=== PATIENT | female | born 1945 | race Caucasian/White ===

== ENCOUNTER 2016-06-09 18:22 | Inpatient (IN) | payer OTHER, MEDICAID, MEDICARE ==
[2016-06-09 18:37] VITALS: BP 94/58
[2016-06-09 19:02] LABS: HEMATOCRIT 29.4 % (35.0-45.0); MEAN CELL VOLUME 104.8 fl (81-100); MEAN CORPUSCULAR HEMOGLOBIN 35.4 pg (27.0-31.0); MEAN CORPUSCULAR HGB CONC 33.8 pg (28.0-36.0); MEAN PLATELET VOLUME 8.2 fl; RED BLOOD COUNT 2.81 Mil/cmm (3.80-5.20)
[2016-06-09 19:21] LABS: INR 1.14 (0.5-1.4)
[2016-06-09 19:22] LABS: PLATELET COUNT 393 Th/cmm (150-400); WHITE BLOOD COUNT 18.8 Th/cmm (4.8-10.8)
[2016-06-09] MEDS ORDERED: Sodium Chloride 0.9% 1,000 ML IV ONE (19:23)
[2016-06-09 19:27] LABS: ALB/GLOB RATIO 0.9 (1.0-1.8); ALKALINE PHOSPHATASE 101 U/L (34-104); ANION GAP 13.5 (7.0-16.0); BUN - UREA NITROGEN 11 mg/dL (7-25); CALCIUM SERUM 7.8 mg/dL (8.6-10.3); CHLORIDE 104 mEq/L (98-107); CHOLESTEROL 68 mg/dL (<200); GLUCOSE 165 mg/dL (70-105); POTASSIUM SERUM 3.5 mEq/L (3.5-5.1); SGOT 36 U/L (13-39); SGPT/ALT 29 U/L (7-52); SODIUM SERUM 136 mEq/L (136-145); TRIGLYCERIDES 103 mg/dL (<150)
--- NOTE | 2016-06-09 19:30 | ED Physician Chart ---
Chief Complaint/HPI - Patient Information Date Seen:: 06/09/16 Time Seen:: 18:43 Chief Complaint:: ALOC History of Present Illness:: THIS IS A 70 YO FEMALE BIB EMS FROM HOME FOUND DOWN AND ALTERED. SHE RESPONSE TO VERBAL STIMULUS AND TACTILE STIMULUS. SHE HAS A HISTORY OF ANEMIA. 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 SHE IS ALSO UNABLE TO GIVE A HISTORY OR REVIEW OF SYSTEMS. Allergies:: Allergies Allergy/AdvReac Type Severity Reaction Status Date / Time No Known Allergies Allergy Verified 10/20/15 21:42 Vitals:: Vital Signs - 8 hr 06/09/16 06/09/16 18:37 18:38 Temp 98.3 F HR 140 RR 10 BP 94/58 94/58 O2 Sat % 100 Historian:: EMS, Medical Records Review:: Nurse's Note Reviewed Review of Systems - Review of Systems Skin: Other (CANNOT GIVE A REVIEW OF SYSTEMS.) Past Medical History - Past Medical History Obtainable: No Family History: Other (UNKNOWN) Social History: Other (UNKNOWN) Surgical History: other (UNKNOWN) Family Medical History - Family Member Mother History Unknown: Yes Physical Exam - Physical Examination General/Constitutional: Well-developed, well-nourished, Alert, No distress, GCS 15, Non-toxic appearing, Ambulatory Other Gen/Cons comments:: ALTERED Head: Atraumatic Eyes: Lids, conjuctiva normal, PERRL, EOMI Skin: Nl inspection, No rash, No skin lesions, No ecchymosis, Well hydrated, No lymphadenopathy Other Skin comments:: PALE DEHYDRATION ENMT: External ears, nose nl, Nasal exam nl, Lips, teeth, gums nl Neck: Nontender, Full ROM w/o pain, No JVD, No nuchal rigidity, No bruit, No mass, No stridor Respiratory: Nl effort/Exclusion, Clear to Auscultation Other Respiratory comments:: DECREASE EXCURSION OF THE DIAPHRAMS Cardio Vascular: RRR (TACHYCARDIC 140), No murmur, gallop, rubs, NL S1 S2 GI: No tenderness/rebounding/guarding, No organomegaly, No hernia, Normal BS's, Nondistended, No mass/bruits, No McBurney tenderness : No CVA tenderness Extremities: No tenderness or effusion, Full ROM, normal strength in all extremities, No edema, Normal digits & nails Neuro/Psych: Alert/oriented, DTR's symmetric, Normal sensory exam, Normal motor strength, Judgement/insight normal, Mood normal, Normal gait, No focal deficits Misc: normal gait, Normal back, No paraspinal tenderness Labs/Radiology/EKG Results - Lab Results Results: Laboratory Tests 06/09/16 18:49 WBC 18.8 H D RBC 2.81 L Hgb 10.0 L Hct 29.4 L MCV 104.8 H MCH 35.4 H MCHC Differential 33.8 RDW 17.0 Plt Count 393 D MPV 8.2 - Radiology Results Results: CHEST X-RAY = COPD LUNGS - EKG Interpretations EKG Time:: 19:36 Rate & Rhythm: 113, SINUS TACH [place]: RIGHT ED Septic Shock - . Is Septic Shock (SBP<90, OR Lactate>4 mmol\L) present?: No - <6hrs of presentation: Vital Signs: Vital Signs - 8 hr 06/09/16 06/09/16 18:37 18:38 Temp 98.3 F HR 140 RR 10 BP 94/58 94/58 O2 Sat % 100 Reassessment (Disposition) - Reassessment Reassessment Condition:: Improved - Diagnosis Diagnosis:: SEPSIS ALTERED LEVEL CONSCIOUSNESS - Patient Disposition Discharge/Transfer:: Acute Care w/in this hosp Admitting Medical Physician:: Kamran Pickard Condition at Disposition:: Improved ED Discharge Plan - Patient Disposition Admit/Discharge/Transfer: Acute Care w/in this hosp Condition at Disposition: Improved
[2016-06-09 19:51] LABS: BAND NEUTROPHILE 10 % (0-10); BASOPHIL 0 % (0-3); EOSINOPHIL 0 % (0-5); NEUTROPHILS 82 % (40-80); PLATELET ESTIMATE ADEQUATE (NORMAL); PLATELET MORPHOLOGY NORMAL (NORMAL); TOTAL CELLS COUNTED 100
[2016-06-09] MEDS ORDERED: Diphenoxylate/Atropine 2.5mg Tab PO PRN (20:40)
--- NOTE | 2016-06-09 21:36 | Admit Criteria Form ---
Admit Criteria Forms - Admit Criteria Diagnosis: SEVERE SEPSIS Clinical Indications for Admission to Inpatient Care (Place 'X' for any and all applicable criteria): Hospital admission is needed for appropriate care of the patient because of ANY ONE of the following: [X]I. Hemodynamic instability indicated by ANY ONE of the following(1)(2)(3)( 4)(5): []a. Vital sign abnormality not readily corrected by appropriate treatment within 12 to 24 hours indicated by ANY ONE of the following: []i) Tachycardia that persists despite appropriate treatment []ii) Hypotension that persists despite appropriate treatment []iii)Orthostatic vital sign changes that persist despite appropriate treatment [X]b. Vital sign abnormality that is severe indicated by ANY ONE of the following: [X]i.Inadequate perfusion indicated by ANY ONE of the following : [X]1) Lactic acidosis (greater than 2 mmol/L) []2) New abnormal capillary refill (greater than 3 seconds) []3) Reduced urine output []4) New altered mental status []5) Myocardial Ischemia []ii. Mean arterial pressure [A] less than 60 mm Hg []iii. Mean arterial pressure[A] less than 70 mm Hg after 30 minutes of appropriate treatment (eg, fluid resuscitation) []iv. Sustained heart rate greater than 120 beats per minute in adult []v. IV inotropic or vasopressor medication required to maintain adequate blood pressure or perfusion []II. Systemic or infectious condition causing severe symptoms or findings not responsive to emergency or observation care treatment (as appropriate) indicated by ANY ONE of the following: []a. Cardiac arrhythmias of immediate concern(1)(2)(3) []b. Severe endocrine disorder (eg, thyrotoxicosis, adrenal insufficiency)(4)(5) []c. Seizures (eg, new or recurrent)(6) []d. New-onset end organ failure or dysfunction as indicated by ANY ONE of the following: []i. Acute unexplained hypoxemia (eg, not from lung infection or chronic disease)(7)(8)(9) []ii. Acute renal failure as indicated by new onset of ANY ONE of the following(10)(11)(12)(13)(14): []1) 3-fold rise in serum creatinine from baseline []2) Serum creatinine greater than 4 mg/dL (354 micromoles/L) with acute rise greater than 0.5 mg/dL (44.2 micromoles/L) []3) Reduction of more than 75% in estimated glomerular filtration rate from baseline. []4) Estimated glomerular filtration rate less than 35 mL/min/1.73m2 ( 0.59 mL/sec/1.73m2) in child younger than 18 years. []5) Cessation of urine output indicated by ALL of the following: []A. Adequate volume status []B. Inadequate urine output as indicated by ANY ONE of the following: []a. Urine output less than 0.3 mL/kg/hr for 24 hours []b. Anuria (urine output less than 0.1 mL/kg/hr) for 12 hours []iii. Acute mental status changes(15) []iv.Acute hepatic failure (eg, plasma bilirubin greater than 4 mg/dL ( 68 micromoles/L), new INR greater than 2.0)(16)(17) []e. Unmanageable nausea and vomiting(18) []f. New-onset or uncontrolled central diabetes insipidus(19)(20) []g. Clinically significant dehydration(18)(21) []h. Hypoglycemia(22) []i. Acidosis (pH less than 7.35) or alkalosis (pH greater than 7.45)( 22)(23) []j. Toxic drug level that indicates need for specific monitoring or treatment(24)(25) []k. Severe electrolyte abnormalities indicated by ALL of the following( 1)(2)(3): []i. Electrolytes and associated findings are not as expected for patient baseline or acceptable treatment effects. []ii. Severe abnormalities indicated by ANY ONE of the following: []1) Sodium less than 130 mEq/L (mmol/L) (new) []2) Sodium less than 135 mEq/L (mmol/L) with ANY ONE of the following: []A. Uncorrectable (to near normal or chronic baseline) after trial of outpatient and emergency treatment []B. Altered mental status []C. Seizures []D. Severe medical etiology requiring inpatient management (eg , heart failure, hypovolemia) []3) Sodium greater than 155 mEq/L (mmol/L) []4) Sodium greater than 150 mEq/L (mmol/L) with ANY ONE of the following: []A. Uncorrectable (to near normal or chronic baseline) with outpatient and emergency treatment []B. Altered mental status []C. Seizures []D. Severe medical etiology (eg, hypovolemia, diabetes insipidus) []5) Potassium less than 2.5 mEq/L (mmol/L) despite outpatient and emergency treatment []6) Potassium less than 3 mEq/L (mmol/L) with ANY ONE of the following : []A. Weakness []B. Cardiac abnormality (eg, arrhythmia, conduction disturbance ) []C. Cardiac ischemia []D. Ileus []E. Ongoing medical cause requiring inpatient management (eg, acute renal wasting or SIADH) []F. Other severe symptoms []7) Potassium greater than 6.5 mEq/L (mmol/L) []8) Potassium greater than 5 mEq/L (mmol/L) with ANY ONE of the following: []A. Uncorrectable (to near normal or chronic baseline) with outpatient and emergency treatment []B. Severe ECG findings[A] []C. Acute worsening of renal failure (creatinine greater than 2.5 mg/dL (221 micromoles/L) or significant elevation for age and size) []D. Severe weakness []E. Severe medical etiology (eg, hemolysis, infection, drug overdose) []9) Calcium less than 7 mg/dL (1.75 mmol/L) despite outpatient and emergency treatment(5) []10) Calcium less than 8 mg/dL (2 mmol/L) with significant symptoms or findings (eg, altered mental status, muscle spasms, seizures , breathing difficulty, cardiac abnormality (eg, arrhythmia or conduction disturbance))(5) []11) Calcium greater than 14 mg/dL (3.5 mmol/L)(5) []12) Calcium greater than 12 mg/dL (3 mmol/L) with ANY ONE of the following(5): []A. Uncorrectable (to near normal or chronic baseline) with outpatient and emergency treatment []B. Significant dehydration or hypovolemia as indicated by ALL of the following(3)(6)(7): []a. Not resolved with initial treatments []b. Clinically significant dehydration as indicated by ANY ONE of the following: [](1) Vomiting refractory to outpatient treatment (ie, precluding oral rehydration) [](2) Inability to drink [](3) Hypernatremia or other electrolyte abnormality unable to be corrected with outpatient and emergency treatment [](4) Failure to remain hydrated with outpatient therapy [](5) Reduced urine output [](6) Hypotension [](7) Serious cause for dehydration requiring acute hospitalization ( eg, bowel obstruction, increased intracranial pressure, infectious cause) [](8) Child with ANY ONE of the following(8): [](i) Severe abdominal tenderness [](ii) Adequate care not available at home [](iii) Severe dehydration (greater than 9% loss of body weight) []C. Significant symptoms or findings (eg, altered mental status , cardiac abnormality (eg, arrhythmia, conduction disturbance), malignant etiology requiring inpatient treatment) []13) Phosphorus less than 1 mg/dL (0.32 mmol/L) []14) Phosphorus less than 1.5 mg/dL (0.48 mmol/L) with ANY ONE of the following: []A. Patient unresponsive to outpatient and emergency treatment []B. Significant symptoms or findings (eg, weakness, altered mental status, breathing difficulty, seizures, rhabdomyolysis) []15) Phosphorus greater than 10 mg/dL (3.2 mmol/L) []16) Phosphorus greater than 4.5 mg/dL (1.45 mmol/L) (new) with ANY ONE of the following: []A. Severe medical etiology (eg, crush injury, acute renal failure) []B. Associated hypocalcemia with significant findings (eg, neurologic symptoms, altered mental status, muscle spasms, seizures, breathing difficulty, cardiac abnormality (eg, arrhythmia, conduction disturbance)) []16) Magnesium less than 1 mg/dL (0.41 mmol/L) []17) Magnesium less than 1.5 mg/dL (0.62 mmol/L) with ANY ONE of the following: []A. Patient unresponsive to outpatient and emergency treatment []B. Associated hypocalcemia with significant findings (eg, altered mental status, muscle spasms, seizures, breathing difficulty, cardiac abnormality (eg, arrhythmia, conduction disturbance)) []C. Associated hypokalemia (potassium less than 3 mEq/L (mmol/L )) with risk of arrhythmia []18) Magnesium greater than 4 mEq/L (2 mmol/L) []19) Magnesium greater than 2.5 mEq/L (1.25 mmol/L) with significant symptoms or findings (eg, weakness, altered mental status, cardiac abnormality (eg, arrhythmia, conduction disturbance), breathing difficulty, severe medical etiology (eg, renal failure, hypovolemia)) []20) Uric acid greater than 20 mg/dL (1190 micromoles/L)(9) []21) Uric acid greater than 8 mg/dL (476 micromoles/L) with significant symptoms or findings of tumor lysis syndrome (eg, creatinine greater than 1.5 times upper limit of normal, cardiac abnormality (eg, arrhythmia, conduction disturbance), seizure)(9) []III. High fever or other high-risk infection situation as indicated by ANY ONE of the following(26)(27)(28): []a. Outpatient and observation care antimicrobial treatment unavailable, not effective, or not appropriate []b. Documented bacteremia []c. Temperature greater than 104.9 degrees F (40.5 degrees C) (oral) []d. Temperature greater than 103.1 degrees F (39.5 degrees C) (oral) or less than 96.8 degrees F (36 degrees C) (rectal) that does not respond to emergency treatment and observation care []IV. High-risk febrile neutropenia[A] as indicated by ANY ONE of the following(29)(30)(31)(32): []a. Profound neutropenia[B] anticipated to extend for more than 7 days []b. Hemodynamic instability []c. Hypoxemia []d. Tachypnea []e. Altered mental status []f. New-onset abdominal pain []g. New-onset vomiting or diarrhea []h. Oral or gastrointestinal mucositis that interferes with swallowing or causes severe diarrhea []i. Focal infection (eg, cellulitis, pneumonia, central line or catheter infection, perirectal abscess) []j. Renal insufficiency (eg, GFR of less than 30 mL/min/1.73m2 (0.5 mL/sec /1.73m2)). []k. Severe liver dysfunction (transaminase levels greater than 5 times normal) []l. Platelet count less than 50,000/mm3 (50 x109/L)(33) []m. Leukemia or lymphoma induction therapy []n. Leukemia not in complete remission or with evidence of disease progression []o. Bone marrow transplant patient []p. Alemtuzumab being used for therapy []q. [employer] Association for Supportive Care in Cancer (MASCC) Risk Index score of less than 21[C](33)(35). []V. Isolation required (eg, tuberculosis that requires isolation, Ebola infection)[D](36)(37)(38)(39)(40) []. Gangrene that requires treatment beyond emergency or observation level care(41)(42) []VII. Antitoxin administration and ongoing observation required (eg, tetanus, botulism)(43)(44) []. Suspected infection with rapid progression or severe symptoms as indicated by ANY ONE of the following(45): []a. Streptococcal or staphylococcal toxic shock(46) []b. Diphtheria(47) []c. Hantavirus(48) []d. Severe acute respiratory syndrome(8)(49) []e. Anthrax(50) []f. Ebola[D](36)(37)(38) []g. Necrotizing soft tissue infection(41)(42) []h. Plague(50) []i. Other suspected infection that requires care beyond emergency or observation level care []VII. Severe adverse drug or systemic toxin reaction as indicated by ANY ONE of the following(24): []a. Serotonin syndrome(51)(52) []b. Neuroleptic malignant syndrome(51)(52) []c. Cholinergic syndrome with severe symptoms (eg, bronchorrhea, weakness , mental status changes, seizures)(53) []d. Anticholinergic syndrome []e. Sympathetic syndrome with severe symptoms (eg, seizures, mental status changes, cardiac dysrhythmias) []f. Other severe adverse drug or systemic toxin reaction that remains after emergency or observation level care (as appropriate) []VIII. Allergic reaction with severe symptoms (not responsive to emergency or observation care treatment as appropriate), including ANY ONE of the following(54): []a. Airway edema (pharyngeal, epiglottic, or laryngeal edema) []b. Stridor []c. Respiratory failure []d. Bronchospasm []e. Hypotension []IX. Environmental emergency (not responsive to emergency or observation care treatment as appropriate) as indicated by ANY ONE of the following(55)(56): []a. Hyperthermia []b. Heat stroke []c. Heat exhaustion []d. Hypothermia (temperature less than 95 degrees F (35 degrees C) rectal) (57) []e. Electrocution(58) []X. Complications of transplanted organ (ie, not covered elsewhere)[E] indicated by ANY ONE of the following(59): []a. Acute graft rejection (or graft vs. host disease)[F] requiring inpatient management (eg, intravenous immunosuppression)(60)(61)(62)(63) []b. Acute failure of transplanted organ necessitating inpatient care (eg, cannot be managed in other setting) []c. Infection requiring inpatient management (eg, Hemodynamic instability, need for intravenous antimicrobial treatment)(64)(65) []d. Other complication of transplanted organ requiring inpatient management []XI. Systemic or Infectious Condition condition, symptom, or finding for which emergency and observation care have failed or are not considered appropriate. See General Criteria: Observation Care, General Admission Criteria or Pediatric General Admission Criteria guideline as appropriate. (Contents from SEVERE SEPSIS and SYSTEMIC OR INFECTIOUS CONDITION clinical indications for admission to inpatient care have been integrated in this form) The [facility] content created by [facility] has been revised. The portions of the content which have been revised are identified through the use of italic text or in bold and [facility] has neither reviewed nor approved the modified material. All other unmodified content is copyright [facility]. Please see references footnoted in the original [facility] edition 2016 Admit Criteria Met?: Yes
[2016-06-09] MEDS: D5-0.45NS 1,000 ML IV SCH (22:46)
[2016-06-10] MEDS ORDERED: Piperacillin Sodium/Tazobact 3.375 gm Vial IV ONE ×2 (00:06→04:56)
[2016-06-10 00:11] LABS: URINE BILIRUBIN NEGATIVE (NEGATIVE); URINE BLOOD SMALL (NEGATIVE); URINE COLOR YELLOW; URINE GLUCOSE (UA) NEGATIVE (NEGATIVE); URINE KETONE NEGATIVE (NEGATIVE); URINE PROTEIN NEGATIVE (NEGATIVE); URINE UROBILINOGEN 0.2 E.U./dL (0.2 - 1.0)
[2016-06-10 00:12] LABS: URINE BACTERIA FEW /hpf (NONE SEEN); URINE EPITHELIAL CELLS RARE /lpf (FEW); URINE HYALINE CAST 0-2 /lpf (0-2); URINE WBC 0-2 /hpf (0-5)
[2016-06-10] MEDS: Ipratropium Neb 0.5 mg/2.5 mL UD HHN SCH ×4 (01:58→19:47)
[2016-06-10] MEDS: Levothyroxine 0.05 Mg Tab PO SCH (06:33)
[2016-06-10] MEDS: Albuterol Nebulizer 2.5mg/3mL HHN PRN ×3 (06:41→19:48)
[2016-06-10 07:02] LABS: HEMOGLOBIN 8.6 gm/dL (11.7-16.1); MEAN CELL VOLUME 104.7 fl (81-100); MEAN CORPUSCULAR HEMOGLOBIN 35.2 pg (27.0-31.0); MEAN CORPUSCULAR HGB CONC 33.7 pg (28.0-36.0); MEAN PLATELET VOLUME 8.2 fl; RED BLOOD COUNT 2.44 Mil/cmm (3.80-5.20); RED CELL DISTRIBUTION WIDTH 17.4 % (11.5-20.0)
[2016-06-10 07:10] LABS: ANION GAP 8.1 (7.0-16.0); BUN - UREA NITROGEN 11 mg/dL (7-25); CALCIUM SERUM 7.1 mg/dL (8.6-10.3); CARBON DIOXIDE 27.3 mEq/L (21.0-31.0); CHLORIDE 106 mEq/L (98-107); GLUCOSE 225 mg/dL (70-105); POTASSIUM SERUM 3.4 mEq/L (3.5-5.1); SODIUM SERUM 138 mEq/L (136-145)
[2016-06-10 08:14] LABS: WHITE BLOOD COUNT 12.2 Th/cmm (4.8-10.8)
[2016-06-10 08:15] LABS: HEMATOCRIT 25.5 % (35.0-45.0)
[2016-06-10] MEDS: Pantoprazole 40 mg EC Tab PO SCH (08:22)
[2016-06-10] MEDS: Multivitamin Tab PO SCH (08:23)
[2016-06-10] MEDS: Calcium Carb/Vit D 500 mg/200 U Tab PO SCH ×2 (08:23→16:07)
[2016-06-10] MEDS: Potassium Chloride 10 mEq ER Tab PO SCH (08:24)
--- NOTE | 2016-06-10 10:31 | Diagnostic Imaging Report ---
Portable chest x-ray History: Shortness of breath Allowing for portable technique the heart size is normal. No focal pulmonary parenchymal processes. No hilar or mediastinal abnormalities. Surgical clips noted in the left upper abdomen. Impression: No acute abnormalities.
[2016-06-10 11:17] LABS: BAND NEUTROPHILE 3 % (0-10); NEUTROPHILS 86 % (40-80); TOTAL CELLS COUNTED 100
[2016-06-10 11:18] LABS: ANISOCYTOSIS 1+; PLATELET ESTIMATE ADEQUATE (NORMAL); PLATELET MORPHOLOGY GIANT PLATELETS SEEN (NORMAL); POIKILOCYTOSIS 1+
--- NOTE | 2016-06-10 11:51 | History & Physical ---
ADMIT DATE: 06/10/2016 CHIEF COMPLAINT: Altered level of consciousness. HISTORY OF PRESENT ILLNESS: The patient is a 70-year-old white female brought in from home, found down, altered. The patient was responsive to verbal stimulus and tactile stimulus. The patient has a prior history of anemia. 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 ALLERGIES: No known allergies. REVIEW OF SYSTEMS: See history of present illness. PAST MEDICAL HISTORY: Unknown. PAST SURGICAL HISTORY: Unknown. SOCIAL HISTORY: Unknown. FAMILY HISTORY: Unknown. MEDICATIONS: See medication reconciliation form. ALLERGIES: No known allergies. PHYSICAL EXAMINATION: GENERAL: The patient in the ER was altered. No acute distress. VITAL SIGNS: On admission, temperature 98.3, pulse 140, blood pressure per nursing, respiratory 20, O2 100%. HEENT: Normocephalic, atraumatic. Extraocular movements intact. Pupils reactive to light. Oropharynx is clear. Poor dentition. NECK: Supple. No thyromegaly. No lymphadenopathy. CARDIOVASCULAR: S1, S2, tachycardic. RESPIRATORY: Clear. No wheezes or rhonchi. GASTROINTESTINAL: Soft, nontender and nondistended. Positive bowel sounds. GENITOURINARY: No CVA tenderness. No suprapubic tenderness. BACK: No midline tenderness. EXTREMITIES: Equal pulses bilaterally. No cyanosis, clubbing. Bilateral lower extremity edema present. SKIN: Negative. PSYCHIATRIC: Negative. NEUROLOGIC: Cranial nerves 2-12 intact. Extraocular movements intact. Sensation intact. Neurovascular intact. Muscle grossly within normal limits. LABORATORY DATA: On admission are as follows: Hematology: WBC 18.8, hemoglobin 10.0, hematocrit 28.4, platelet count of 393, 80% neutrophils, 4% lymphocytes. Coagulation: PT 12.0, INR per labs and PTT 25.2. Chemistry: Sodium 136, potassium 3.5, chloride 104, bicarbonate 22, anion gap 13, BUN 11, creatinine is 1.0, GFR is 58. Glucose 165. Lactic acid 3.59, calcium 7.8, total bilirubin 1.0, AST 36, ALT 29, alkaline phosphatase 101, troponin 0.04, total protein per labs, albumin 2.1, globulin 2.4. Triglycerides 103, cholesterol 68, LDL 26, AST 29. TSH is 4.17. Urinalysis, small blood, RPR nonreactive. RADIOLOGY: No new results. IMPRESSION: 1. Altered level of consciousness. 2. Sepsis. 3. Leukocytosis. 4. Anemia. 5. Hyperglycemia. 6. Hypercalcemia. 7. Hypoalbuminemia. 8. Protein-calorie malnutrition severe. PLAN: The patient admitted to telemetry unit, seen by Dr. Jakob Pickard. Obtain further labs and consultation as needed. JOB# [id number] [facility]
[2016-06-10] MEDS: INSULIN ASPART SLIDING SCALE 100 UNITS/ML UNIT SUBQ SCH ×3 (12:10→21:00)
--- NOTE | 2016-06-10 15:21 | Consultation ---
DATE OF CONSULTATION: 06/10/2016 REFERRING PHYSICIAN: Dr. Kamran Pickard. REASON FOR CONSULTATION: Anemia. HISTORY OF PRESENT ILLNESS: The patient is a 70-year-old female who was admitted with possible sepsis with altered level of consciousness. She was on admission lethargic and unable to answer questions. The patient is a poor historian. PAST MEDICAL HISTORY: Hypothyroidism, leg cellulitis, chronic pain syndrome, opioid dependence, hypertension. SOCIAL HISTORY: The patient says that she stays at home with a caregiver. SURGICAL HISTORY: Left hip arthroplasty. MEDICATIONS: Reviewed. PHYSICAL EXAMINATION: GENERAL: She is awake and now answers questions somewhat better. HEENT: Atraumatic, pale complexion. NECK: Supple. No peripheral lymphadenopathy. CHEST: Clear. ABDOMEN: Soft. EXTREMITIES: ____ in both lower extremities associated with the edema. NERVOUS SYSTEM: Nonfocal deficits. LABORATORY DATA: White count 12.2, predominant neutrophils, hemoglobin 8.6, platelets 393, MCV 14, creatinine 1, TSH 4. Chest x-ray unremarkable. ASSESSMENT: Microcytic anemia. Differential diagnosis include B12 ____ deficiency or myelodysplastic syndrome, TSH is normal. I will obtain B12 and folate level, ____ and studies. The patient has microscopic hematuria and there is no need to transfuse at this time. Thank you for the opportunity to participate in the care of this interesting case. JOB# [id number]
[2016-06-10] MEDS: D5-0.45NS 1,000 ML IV SCH (23:02)
[2016-06-11] MEDS: Ipratropium Neb 0.5 mg/2.5 mL UD HHN SCH ×4 (01:16→18:50)
[2016-06-11] MEDS: Hydrocodone/APAP 5mg/325mg Tab PO PRN (06:48)
[2016-06-11] MEDS: Levothyroxine 0.05 Mg Tab PO SCH (06:48)
[2016-06-11] MEDS: INSULIN ASPART SLIDING SCALE 100 UNITS/ML UNIT SUBQ SCH ×4 (07:00→21:30)
[2016-06-11 07:32] LABS: % BASOPHILS 0.2 % (0.0-2.0); % EOSINOPHILS 0.4 % (0.0-5.0); % LYMPHOCYTES 13.8 % (20.0-50.0); % MONOCYTES 5.7 % (2.0-10.0); % NEUTROPHILS 79.9 % (40.0-80.0); HEMOGLOBIN 8.1 gm/dL (11.7-16.1); MEAN CELL VOLUME 104.7 fl (81-100); MEAN CORPUSCULAR HEMOGLOBIN 35.5 pg (27.0-31.0); MEAN CORPUSCULAR HGB CONC 33.9 pg (28.0-36.0); MEAN PLATELET VOLUME 8.2 fl; NEUTROPHILE ABSOLUTE 6.4 Th/cmm (1.8-8.0); RED BLOOD COUNT 2.27 Mil/cmm (3.80-5.20); RED CELL DISTRIBUTION WIDTH 17.9 % (11.5-20.0)
[2016-06-11] MEDS: Albuterol Nebulizer 2.5mg/3mL HHN PRN ×3 (07:44→18:51)
[2016-06-11 08:07] LABS: ALB/GLOB RATIO 0.8 (1.0-1.8); ALKALINE PHOSPHATASE 75 U/L (34-104); ANION GAP 8.9 (7.0-16.0); BILIRUBIN,TOTAL 0.5 mg/dL (0.3-1.0); BUN - UREA NITROGEN 10 mg/dL (7-25); BUN/CREATININE RATIO 11.1; CARBON DIOXIDE 28.1 mEq/L (21.0-31.0); CHLORIDE 108 mEq/L (98-107); CREATININE - SERUM 0.9 mg/dL (0.6-1.2); GLUCOSE 107 mg/dL (70-105); MAGNESIUM 1.8 mg/dL (1.9-2.7); SGOT 62 U/L (13-39); SGPT/ALT 35 U/L (7-52); SODIUM SERUM 142 mEq/L (136-145)
[2016-06-11] MEDS: Multivitamin Tab PO SCH (08:16)
[2016-06-11] MEDS: Pantoprazole 40 mg EC Tab PO SCH (08:16)
[2016-06-11] MEDS: Potassium Chloride 10 mEq ER Tab PO SCH (08:16)
[2016-06-11] MEDS: Calcium Carb/Vit D 500 mg/200 U Tab PO SCH ×2 (08:16→16:14)
[2016-06-11 08:38] LABS: HEMATOCRIT 23.8 % (35.0-45.0)
[2016-06-11 09:11] LABS: HCO3 28.1 mEq/L (20.0-26.0); pH 7.48 (7.35-7.45)
[2016-06-11 09:12] LABS: ABG SOURCE Arterial; ALLEN TEST Positive; CRITICAL VALUES REPORTED BY ACELIS; FIO2 28
--- NOTE | 2016-06-11 09:30 | Diagnostic Imaging Report ---
Portable chest x-ray History: Shortness of breath Allowing for portable technique the heart size is normal. No focal pulmonary parenchymal processes. No hilar or mediastinal abnormalities. Impression: No acute abnormalities.
[2016-06-11] MEDS: D5-0.45NS 1,000 ML IV SCH ×2 (12:26→23:51)
--- NOTE | 2016-06-11 21:44 | Consultation ---
DATE OF CONSULTATION: 06/10/2016 PULMONARY/CRITICAL CARE CONSULTATION REASON FOR CONSULTATION: COPD, questionable with hypoxemia; altered state of mind. CONSULT NOTE: This is a 70-year-old female, who was basically brought by paramedics from home, was found altered and down and was shallow breathing, and subsequently also was borderline hypoxemia according to the notes from ER and transporter. Subsequently, the patient was admitted and her x-rays were abnormal and questionable hypoxemia. I was asked to see this patient for further care and necessary treatment. The patient currently is a little more awake and says she does not know why she is here according to family she says "I was confused, disoriented." Denied of any coughing or any wheezing, any shortness of breath, any fall, or any other related symptomatology. Denied of any fever or viral syndrome prior to coming to the hospital. No pleuritic chest pain, has chronic swelling of the legs, and has been taking multiple medicine for strengthening of the bone and pain management because of related ____. PAST MEDICAL HISTORY: Spinal problem, history of osteoporosis, other than that not much history. SMOKING HISTORY: Nil. ALLERGIC HISTORY: None, and denies of any specific allergies. SOCIAL HISTORY: Lives at home by herself. PHYSICAL EXAMINATION: GENERAL: This is an elderly looking female, currently awake, alert, not in any acute distress. VITAL SIGNS: Temperature is 98, blood pressure 110/65, saturation is 98 on 2 liters. HEENT: Examination of the head is essentially unremarkable. Pupils appear to be equal and reactive to light. Conjunctivae are slightly pallor. Oral cavity shows poor dental hygiene, otherwise unremarkable. NECK: No nodes in the neck could be palpated. Good bilateral carotid upstroke. CHEST: Findings show slightly kyphotic chest wall and on auscultation, occasional rhonchi with diminished air entry. HEART: Regular. ABDOMEN: Soft, nontender. EXTREMITIES: Shows some chronic edematous changes with poor pulsations. LABORATORY DATA: The patient's white count is 12,000, hemoglobin 8.6. Electrolytes are okay with potassium 3.4, sugar is 225, and the patient's lactic acid is 3.59. Urine has small blood with few bacteria. MCV is 104. ASSESSMENT: 1. The patient has altered state of mind, exact etiology is not clear. 2. X-ray shows alveolar airspace disease radiographically, but not clinically. 3. Hypoxemia may be secondary to emphysematous changes in lung, complicated by taking morphine and/or complicated by anemia as well. PLANS AND SUGGESTIONS: We will go ahead and continue current treatment, inhalation treatment, symptomatic treatment, repeat the patient's chest x-ray, etc, and repeat blood gases and see how she does and go from there. JOB# [id number]
[2016-06-12] MEDS: Ipratropium Neb 0.5 mg/2.5 mL UD HHN SCH ×4 (01:48→19:41)
[2016-06-12] MEDS: Albuterol Nebulizer 2.5mg/3mL HHN PRN ×3 (01:48→13:21)
--- NOTE | 2016-06-12 05:31 | Progress Notes ---
DATE: 06/11/2016 SUBJECTIVE: The patient is asleep. The patient is on oxygen nasal cannula. The patient is on IV fluids. The patient is on IV antibiotics. OBJECTIVE: VITAL SIGNS: Temperature 97.4, pulse 88, blood pressure 95/51, respiration 18, and O2 sat was 94% on 2 liters nasal cannula. CARDIOVASCULAR: S1 and S2. RESPIRATORY: Rales. GASTROINTESTINAL: Soft. Positive bowel sounds. LABORATORY DATA: Hematology: WBC is 8.0, hemoglobin 8.1, hematocrit 23.8, and platelet count unknown. ABG shows pH of 7.4, pCO2 of 37, pO2 of 142, bicarbonate 28. Chemistry: Sodium 142, potassium 3.0, chloride 108, bicarbonate 28, anion gap 8.9, BUN 10, creatinine 0.9, GFR 160, glucose is 107, calcium 1.0, mag is 1.8, total bili 0.5, AST 62, ALT 35, alkaline phosphatase 75, protein 3.3, albumin less than 1.5, globulin 1.8, TSH 3.46, Stool occult blood is negative. MICROBIOLOGY: Blood culture from 06/09/2016 shows growth. MRSA screen from 06/09/2016 is negative. Radiologic test: Chest x-ray from 06/11/2016 shows no acute abnormalities. ASSESSMENT: 1. Microcytic anemia. 2. Respiratory failure (acute). 3. Hyperkalemia. 4. Hyperglycemia. 5. Hypercalcemia. 6. Hypermagnesemia. 7. Hypoalbuminemia. 8. Severe protein-calorie malnutrition (severe). 9. Altered level of consciousness (resolved). 10. Sepsis. 11. Leukocytosis (resolved). 12. Insomnia. 13. Dyspepsia. 14. Hypertension. 15. Hypothyroidism. 16. Chronic pain syndrome. 17. Status post left hip arthroplasty. 19. Microscopic hematuria. 20. Possible myelodysplastic syndrome. PLAN: Continue current medication and treatment. Obtain labs in a.m. Awaiting final culture results. Awaiting CT test results. Further recommendations per consultation. JOB# [id number] [id number]
[2016-06-12] MEDS: Levothyroxine 0.05 Mg Tab PO SCH (06:35)
[2016-06-12 07:28] LABS: % BASOPHILS 4.6 % (0.0-2.0); % EOSINOPHILS 0.5 % (0.0-5.0); % LYMPHOCYTES 10.4 % (20.0-50.0); % MONOCYTES 4.4 % (2.0-10.0); % NEUTROPHILS 80.1 % (40.0-80.0); MEAN CELL VOLUME 103.9 fl (81-100); MEAN CORPUSCULAR HEMOGLOBIN 36.1 pg (27.0-31.0); MEAN CORPUSCULAR HGB CONC 34.7 pg (28.0-36.0); MEAN PLATELET VOLUME 8.2 fl; NEUTROPHILE ABSOLUTE 7.5 Th/cmm (1.8-8.0); RED BLOOD COUNT 2.77 Mil/cmm (3.80-5.20); RED CELL DISTRIBUTION WIDTH 18.3 % (11.5-20.0); WHITE BLOOD COUNT 9.3 Th/cmm (4.8-10.8)
[2016-06-12 07:55] LABS: ANION GAP 9.1 (7.0-16.0); BUN - UREA NITROGEN 8 mg/dL (7-25); BUN/CREATININE RATIO 11.4; CALCIUM SERUM 7.3 mg/dL (8.6-10.3); CARBON DIOXIDE 27.2 mEq/L (21.0-31.0); CHLORIDE 109 mEq/L (98-107); CREATININE - SERUM 0.7 mg/dL (0.6-1.2); GLUCOSE 100 mg/dL (70-105); SODIUM SERUM 143 mEq/L (136-145)
[2016-06-12 08:10] LABS: POTASSIUM SERUM 2.3 mEq/L (3.5-5.1)
[2016-06-12 08:14] LABS: HEMATOCRIT 28.8 % (35.0-45.0); PLATELET COUNT 244 Th/cmm (150-400)
[2016-06-12] MEDS: KCL 20mEq/100mL Premix 20 MEQ/100 ML PIGGYBACK IV SCH ×3 (08:50→14:25)
--- NOTE | 2016-06-12 09:01 | Progress Notes ---
DATE: 06/11/2016 PULMONARY PROGRESS NOTE PROBLEM LIST: 1. Chronic obstructive pulmonary disease, nonsmoker. 2. Elevated diaphragm. 3. History of syncopal attack and history of chronic pain syndrome. SYMPTOMS: Nil. Feeling okay. No specific new symptomatology, coughing, or wheezing, etc. PHYSICAL EXAMINATION: VITAL SIGNS: Temperature is 97.4, respirations in mid to , and saturation is 98 on 2 liters of oxygen. NECK: Veins not visualized. CHEST: Shows diminished air entry. No other adventitious breath sounds. HEART: Regular. ABDOMEN: Soft and nontender. EXTREMITIES: Shows chronic edematous changes, poor pulsations, hemoglobin is 8.1. White count is 8000. ABG shows pO2 of 142 on 2 liters and electrolytes show potassium is 3, otherwise is essentially unremarkable. ASSESSMENT: 1. The patient is clinically stable, no much change, has nonsmoker, chronic obstructive pulmonary disease. 2. Elevated diaphragm left side and also history of suspected obstructive sleep apnea syndrome. PLANS AND SUGGESTIONS: We will go ahead and continue current treatment. Hopefully, if other medical issues are stable, can be discharged and go from there. JOB# [id number]
[2016-06-12] MEDS: INSULIN ASPART SLIDING SCALE 100 UNITS/ML UNIT SUBQ SCH ×4 (09:06→20:30)
[2016-06-12] MEDS: Calcium Carb/Vit D 500 mg/200 U Tab PO SCH ×2 (09:11→16:43)
[2016-06-12] MEDS: Potassium Chloride 10 mEq ER Tab PO SCH (09:12)
[2016-06-12] MEDS: Pantoprazole 40 mg EC Tab PO SCH (09:12)
[2016-06-12] MEDS: Multivitamin Tab PO SCH (09:12)
--- NOTE | 2016-06-12 11:30 | Consultation ---
DATE OF CONSULTATION: 06/10/2016 PRIMARY PHYSICIAN: Dr. Pickard. REASON FOR CONSULTATION: This 70-year-old female was brought to the Emergency Room with complaint of bilateral leg cellulitis. HISTORY OF PRESENT ILLNESS: The patient started having cellulitis of both legs and was seen by ER physician, admitted to the hospital. Infectious consultation was called. The patient's antibiotic adjusted and examined as soon as possible. PAST MEDICAL HISTORY: Essential hypertension, dermatitis, recurrent cellulitis, chronic pain, osteoarthrosis and hypothyroidism. FAMILY HISTORY: Negative. PAST SURGICAL HISTORY: Total hip replacement, left side. SOCIAL HISTORY: Nonsmoker. REVIEW OF SYSTEMS: A 14-point review of system negative except above. PHYSICAL EXAMINATION: GENERAL: The patient is an elderly female. VITAL SIGNS: Temperature 97.8, pulse 110, respiration 18 and blood pressure 112/64. HEENT: Mild pallor. No icterus. No plaque. NECK: Supple. LUNGS: Breath sounds bilateral vesicular. CARDIOVASCULAR: S1, S2. ABDOMEN: Soft, bowel sounds present. No thyroid, no cervical lymph nodes. EXTREMITIES: Bilateral leg edema, swelling and redness suggestive of cellulitis. LABORATORY DATA: White count is 18,000, hemoglobin is 10 grams and platelets 393. UA: Small blood. Chemistry shows creatinine of 0.9. Blood gas 7.48/37/142. Also chest x-ray is negative. DIAGNOSES: 1. Leukocytosis, ____ cellulitis, rule out other sources. The patient ordered CT abdomen and pelvis. 2. Repeat chest x-ray. Meanwhile empirically continue on Zosyn. Repeat labs tomorrow. Supportive care. PLAN: This patient is started on ____. Also, the patient's wound culture ordered. Muscle spasm, baclofen, diabetes, insomnia temazepam. Thank you, Dr. Pickard, for this consultation. JOB# [id number]
--- NOTE | 2016-06-12 12:12 | Diagnostic Imaging Report ---
CT scan abdomen and pelvis without intravenous contrast HISTORY: Pain, fever Axial sections were obtained from the xiphoid process down to the pubic symphysis. Limited sections the lower chest demonstrate small bilateral pleural effusions. Artifact associated with numerous surgical clips seen within the gastric/perigastric region. Evidence of mild diffuse ascites seen throughout the abdomen and pelvis with haziness throughout the mesentery. There is poor delineation of bowel wall margins. Suggestion of mild generalized small bowel dilatation. No focal renal lesions are seen. No hydronephrosis. The pancreas appears atrophic. An approximate 5 mm hyperdense focus is noted adjacent to the hepatic flexure. Changes may be related to contrast within a diverticulum. The gallbladder is not definitely seen. This should be correlated with patient's surgical history. Evaluation of the pelvis is limited due to artifact associated with the right hip prosthesis. Ivey catheter seen within a contracted urinary bladder. There is a mildly distended stool-filled rectum. Again, poor delineation of bowel wall margins with generalized haziness seen. Diffuse haziness noted throughout the subcutaneous fatty tissues of the abdomen and pelvis consistent with anasarca. Surgical changes noted within the lumbar spine. Scoliosis an additional degenerative changes seen throughout the spine. IMPRESSION: 1. Anasarca 2. Generalized haziness throughout the abdomen and pelvis suggesting mild diffuse edema and mild diffuse ascites. 3. Poor delineation of bowel wall margins. Suggestion of mild generalized small bowel dilatation uncertain etiology and significance. Questionable generalized thickening of the bowel wall of the colon and small bowel. 4. Surgical changes 5. Small bilateral pleural effusions
[2016-06-12] MEDS: Hydrocodone/APAP 5mg/325mg Tab PO PRN (12:15)
--- NOTE | 2016-06-12 18:39 | Infectious Disease Prog Note ---
Infectious Disease Subjective - Review of Systems Service Date: 06/12/16 Subjective: cc cellulitis hpi- pt ct a/p shows anasarca, abx adjusted ros nio fever o/e drowsy vss chest claer abd ascites ext pulse dx anasarca. leg cellulitis plan vanco iv po levaquin Infectious Disease Objective - Results Result Diagrams: 06/12/16 07:05 06/12/16 07:05 Recent Labs: Laboratory Last Values WBC 9.3 Th/cmm (4.8-10.8) 06/12/16 07:05 RBC 2.77 Mil/cmm (3.80-5.20) L 06/12/16 07:05 Hgb 10.0 gm/dL (11.7-16.1) L 06/12/16 07:05 Hct 28.8 % (35.0-45.0) L D 06/12/16 07:05 MCV 103.9 fl (81-100) H 06/12/16 07:05 MCH 36.1 pg (27.0-31.0) H 06/12/16 07:05 MCHC Differential 34.7 pg (28.0-36.0) 06/12/16 07:05 RDW 18.3 % (11.5-20.0) 06/12/16 07:05 Plt Count 244 Th/cmm (150-400) D 06/12/16 07:05 MPV 8.2 fl 06/12/16 07:05 Neutrophils % 80.1 % (40.0-80.0) H 06/12/16 07:05 Band Neutrophils % 3 % (0-10) 06/10/16 06:21 Lymphocytes % 10.4 % (20.0-50.0) L 06/12/16 07:05 Monocytes % 4.4 % (2.0-10.0) 06/12/16 07:05 Eosinophils % 0.5 % (0.0-5.0) 06/12/16 07:05 Basophils % 4.6 % (0.0-2.0) H 06/12/16 07:05 Neutrophils (Manual) 86 % (40-80) H 06/10/16 06:21 Lymphocytes 8 % (20-50) L 06/10/16 06:21 Monocytes 3 % (2-10) 06/10/16 06:21 Eosinophils 0 % (0-5) 06/09/16 18:49 Basophils 0 % (0-3) 06/09/16 18:49 Platelet Estimate ADEQUATE (NORMAL) 06/10/16 06:21 Platelet Morphology GIANT PLATELETS SEEN (NORMAL) 06/10/16 06:21 Poikilocytosis 1+ 06/10/16 06:21 Anisocytosis 1+ 06/10/16 06:21 RBC Morph Micro Appear ABNORMAL (NORMAL) 06/10/16 06:21 ESR 17 mm/hr (0-30) 06/12/16 07:05 PT 12.0 SECONDS (9.5-11.5) H 06/09/16 18:49 INR 1.14 (0.5-1.4) 06/09/16 18:49 PTT (Actin FS) 25.2 SECONDS (26.0-38.0) L 06/09/16 18:49 Specimen Source Arterial 06/11/16 08:48 Sample Site Left Radial 06/11/16 08:48 pH 7.48 (7.35-7.45) H 06/11/16 08:48 pCO2 37.0 mmHg (35.0-45.0) 06/11/16 08:48 pO2 142.0 mmHg (80.0-100.0) H 06/11/16 08:48 HCO3 28.1 mEq/L (20.0-26.0) H 06/11/16 08:48 Base Excess 4.0 mEq/L (-3.0-3.0) H 06/11/16 08:48 O2 Saturation 99.0 % (92.0-100.0) 06/11/16 08:48 Nawaf Test Positive 06/11/16 08:48 Vent Rate NA 06/11/16 08:48 Inspired O2 28 06/11/16 08:48 Tidal Volume NA 06/11/16 08:48 PEEP NA 06/11/16 08:48 Pressure (ins/psv/peep) NA 06/11/16 08:48 Critical Value ACELIS 06/11/16 08:48 Sodium 143 mEq/L (136-145) 06/12/16 07:05 Potassium 2.3 mEq/L (3.5-5.1) L* 06/12/16 07:05 Chloride 109 mEq/L (98-107) H 06/12/16 07:05 Carbon Dioxide 27.2 mEq/L (21.0-31.0) 06/12/16 07:05 Anion Gap 9.1 (7.0-16.0) 06/12/16 07:05 BUN 8 mg/dL (7-25) 06/12/16 07:05 Creatinine 0.7 mg/dL (0.6-1.2) 06/12/16 07:05 Est GFR ( Amer) > 60.0 ml/min (>90) 06/12/16 07:05 Est GFR (Non-Af Amer) > 60.0 ml/min 06/12/16 07:05 BUN/Creatinine Ratio 11.4 06/12/16 07:05 Glucose 100 mg/dL (70-105) 06/12/16 07:05 POC Glucose 139 MG/DL (70 - 105) H 06/12/16 16:45 Whole Bld Lactic Acid 3.53 mmol/L (0.60-1.99) H* 06/09/16 21:18 Calcium 7.3 mg/dL (8.6-10.3) L 06/12/16 07:05 Magnesium 1.8 mg/dL (1.9-2.7) L 06/11/16 06:55 Total Bilirubin 0.5 mg/dL (0.3-1.0) 06/11/16 06:55 AST 62 U/L (13-39) H 06/11/16 06:55 ALT 35 U/L (7-52) 06/11/16 06:55 Alkaline Phosphatase 75 U/L (34-104) 06/11/16 06:55 Troponin I 0.04 ng/mL (0.01-0.05) 06/09/16 18:49 C-Reactive Protein 1.1 mg/dL (0.0-0.9) H 06/12/16 07:05 Total Protein 3.3 gm/dL (6.0-8.3) L 06/11/16 06:55 Albumin < 1.5 gm/dL (3.7-5.3) L 06/11/16 06:55 Globulin 1.8 gm/dL 06/11/16 06:55 Albumin/Globulin Ratio 0.8 (1.0-1.8) L 06/11/16 06:55 Triglycerides 103 mg/dL (<150) 06/09/16 18:49 Cholesterol 68 mg/dL (<200) 06/09/16 18:49 LDL Cholesterol Direct 26 mg/dL (75-193) L 06/09/16 18:49 HDL Cholesterol 29 mg/dL (23-92) 06/09/16 18:49 TSH 3.46 uIU/ml (0.34-5.60) 06/11/16 06:55 Urine Source CATH 06/09/16 23:45 Urine Color YELLOW 06/09/16 23:45 Urine Clarity CLEAR (CLEAR) 06/09/16 23:45 Urine pH 6.0 06/09/16 23:45 Ur Specific [place] 1.010 (1.005-1.030) 06/09/16 23:45 Urine Protein NEGATIVE mg/dL (NEGATIVE) 06/09/16 23:45 Urine Glucose (UA) NEGATIVE mg/dL (NEGATIVE) 06/09/16 23:45 Urine Ketones NEGATIVE mg/dL (NEGATIVE) 06/09/16 23:45 Urine Blood SMALL (NEGATIVE) H 06/09/16 23:45 Urine Nitrate NEGATIVE (NEGATIVE) 06/09/16 23:45 Urine Bilirubin NEGATIVE (NEGATIVE) 06/09/16 23:45 Urine Urobilinogen 0.2 E.U./dL (0.2 - 1.0) 06/09/16 23:45 Ur Leukocyte Esterase NEGATIVE (NEGATIVE) 06/09/16 23:45 Urine RBC 2-5 /hpf (0-5) 06/09/16 23:45 Urine WBC 0-2 /hpf (0-5) 06/09/16 23:45 Ur Epithelial Cells RARE /lpf (FEW) 06/09/16 23:45 Urine Bacteria FEW /hpf (NONE SEEN) 06/09/16 23:45 Hyaline Casts 0-2 /lpf (0-2) H 06/09/16 23:45 Stool Occult Blood NEGATIVE (NEGATIVE) 06/11/16 12:00 RPR NONREACTIVE (NONREACTIVE) 06/09/16 18:49 - Physical Exam Vitals and I&O: Vital Signs Temp 97 F 06/12/16 16:00 Pulse 97 06/12/16 16:00 Resp 20 06/12/16 16:00 BP 120/63 06/12/16 16:44 Pulse Ox 100 06/12/16 16:00 Intake & Output 06/11/16 06/12/16 06/12/16 18:59 06:59 18:59 Intake Total 1700 1150 594.75 Output Total 1400 850 Balance 300 300 594.75 Intake: Intake, IV Amount 1350 1050 594.75 D5-0.45NS 1,000 ml @ 100 1000 1000 mls/hr IV .Q10H [facility] Rx#: [id number] KCL 20mEq/100mL Premix 20 200 meq In 100 ml @ 50 mls/ hr IV Q2H [facility] Rx#: [id number] Piperacillin Sodium/ 100 50 150 Tazobact 3.375 gm In Sodium Chloride 0.9% 50 ml @ 100 mls/hr IV Q6HR [facility] Rx#:[id number] Vancomycin HCl 0.75 gm In 250 244.75 Sodium Chloride 0.9% 250 ml @ 165 mls/hr IV Q24HR @1500 [facility] Rx#:[id number] Oral 350 100 Output: Urine 1400 850 Other: # Bowel Movements 1 Active Medications: Current Medications Acetaminophen (Tylenol) 650 mg PO Q4HR PRN PRN Reason: Pain (Mild) Stop: 08/08/16 20:39 Acetaminophen/Hydrocodone Bitart ([place] 5mg/325mg) 1 tab PO Q6HR PRN PRN Reason: Pain (Severe) Stop: 08/08/16 20:39 Last Admin: 06/12/16 12:15 Dose: 1 tab Albuterol Sulfate (Albuterol 2.5mg/3ml Neb Ud) 2.5 mg HHN Q6H PRN PRN Reason: Respiratory Distress Stop: 08/08/16 23:08 Last Admin: 06/12/16 13:21 Dose: 2.5 mg Alendronate Sodium (Fosamax) 70 mg PO QWED [facility] Stop: 08/13/16 07:29 Ascorbic Acid (Vitamin C) 500 mg PO DAILY [facility] Stop: 08/09/16 08:59 Last Admin: 06/12/16 09:11 Dose: 500 mg Baclofen (Lioresal) 10 mg PO BID [facility] Stop: 08/09/16 08:59 Last Admin: 06/12/16 16:43 Dose: 10 mg Calcium/Vitamin D (Oscal W/Vitamin D) 1 tab PO BID AMADO Stop: 08/09/16 08:59 Last Admin: 06/12/16 16:43 Dose: 1 tab Diphenoxylate HCl/Atropine (Lomotil) 2 tab PO DAILY PRN PRN Reason: Diarrhea Stop: 08/08/16 20:39 Furosemide (Lasix) 20 mg PO QPM AMADO Stop: 08/09/16 16:59 Last Admin: 06/12/16 16:44 Dose: 20 mg Furosemide (Lasix) 40 mg PO DAILY AMADO Stop: 08/09/16 08:59 Last Admin: 06/12/16 09:11 Dose: 40 mg Dextrose/Sodium Chloride (D5-0.45ns) 1,000 mls @ 100 mls/hr IV .Q10H AMADO Stop: 08/08/16 20:36 Last Admin: 06/11/16 23:51 Dose: 100 mls/hr Vancomycin HCl 0.75 gm/ Sodium (Chloride) 250 mls @ 165 mls/hr IV Q24HR@1500 AMADO Stop: 08/10/16 14:59 Last Infusion: 06/12/16 17:35 Dose: 165 mls/hr Insulin Aspart (Novolog Insulin Sliding Scale) 0 units SUBQ ACHS AMADO PRN Reason: Protocol Stop: 08/09/16 11:29 Last Admin: 06/12/16 16:46 Dose: Not Given Ipratropium [place] (Atrovent Neb 0.5mg/2.5ml) 0.5 mg HHN Q6HRT AMADO Stop: 08/09/16 00:59 Last Admin: 06/12/16 13:21 Dose: 0.5 mg Levofloxacin (Levaquin) 500 mg PO DAILY AMADO Stop: 08/12/16 08:59 Levothyroxine Sodium (Synthroid) 0.05 mg PO QDAC AMADO Stop: 08/09/16 07:29 Last Admin: 06/12/16 06:35 Dose: 0.05 mg Miscellaneous (Vancomycin Iv Per Pharmacy) 1 ea MC PRN AMADO Stop: 08/10/16 14:14 Multivitamins/Vitamin C (Theragran) 1 tab PO DAILY AMADO Stop: 08/09/16 08:59 Last Admin: 06/12/16 09:12 Dose: 1 tab Pantoprazole Sodium (Protonix) 40 mg PO DAILY AMADO Stop: 08/09/16 08:59 Last Admin: 06/12/16 09:12 Dose: 40 mg Potassium Chloride (Klor-Con) 10 meq PO DAILY AMADO Stop: 08/09/16 08:59 Last Admin: 06/12/16 09:12 Dose: 10 meq Temazepam (Restoril) 15 mg PO HS PRN; Protocol PRN Reason: Insomnia Stop: 08/08/16 20:39 Zinc Sulfate (Zinc Sulfate) 220 mg PO DAILY AMADO Stop: 08/09/16 08:59 Last Admin: 06/12/16 09:12 Dose: 220 mg Nutritional Asmnt/Malnutr-PDOC - Dietary Evaluation Malnutrition Findings (Please click <Entered> for more info): Nutritional Asmnt/Malnutrition Start: 06/10/16 11: 22 Text: Status: Complete Freq: Document 06/10/16 11:22 RAFAELA (Rec: 06/10/16 11:32 RAFAELA OTERO- [email or web address]) Nutritional Asmnt/Malnutrition Patient General Information Nutritional Screening Consult Diagnosis Weakness (reason for visit) Pertinent Medical Hx/Surgical Hx hypotension, chronic narcotic use, anemia, CVA, CHF, GERD Subjective Information Consult received for no appetite. Patient was admitted for weakness. Per admission data, poor oral intake > 1 week. Per patient, her appetite is now very good, no issues. She follows a mechanical soft diet at home without difficulty. She requested tea instead of coffee, ketchup with breakfast , soy milk only, soup with lunch and dinner, and only sugar substitutes. Will honor food preferences. States she understands diabetic diet. Swallow evaulation completed today; per speech therapist, continue mechanical soft ground diet with thin liquids, tolerating well. Current Diet Order/ Nutrition Support Mechanical soft ground Patient / S.O Can Pertinent Medications vitamin C, Oscal w/D, lasix, novolog, synthroid, theragran, protonix, Klor, zinc Pertinent Labs (06/10) K 3.4, glucose 225, 273 , Ca 7.1, albumin 2.1 Nutritional Hx/Data Height 1.65 m Height (Calculated Centimeters) 165.1 Current Weight (lbs) 58.967 kg Weight (Calculated Kilograms) 59.0 Weight (Calculated Grams) 10173.0 [place] Body Weight 125 % [place] Body Weight 104 Weight Status Approriate GI Symptoms GI Symptoms None Food Allergies No Cultural/Ethnic/Synagogue Belief none indicated Skin Integrity/Comment: Ankle edema, bruise/reddened right upper arm Estimated Nutritional Goals BEE in Kcals: Using Current wt Calories/Kcals/Kg 130lb/59kg Kcals Calculated 4832-4799 kcal/day Protein: Using Current wt Protein g/k-1.2 gm/kg Protein Calculated 60-70 gm/day Fluid: ml 8306-6198 ml/day (1 ml/kcal) Nutritional Problem 1. Problem Problem Altered nutrition related lab values related to Etiology electrolyte imbalance and hyperglycemia aeb Signs/Symptoms: K 3.4, glucose 225, 273, Ca 7. 1, Intervention/Recommendation Recommendations by RD Dietary Education by RD1 Increase Calorie Intake Comments 1. Modify diet to 60 gm CCHO, mechanical soft ground diet as tolerated by patient. 2. [place] food preferences to increase oral intake; added to Cardex. 3. MD to modify insuiln regimen/replace K as needed. Expected Outcomes/Goals Expected Outcomes/Goals nutrition related labs normalize, weight remains stable, oral intake to meet > 75% of nutrient needs.
[2016-06-13] MEDS: Ipratropium Neb 0.5 mg/2.5 mL UD HHN SCH ×3 (01:56→13:15)
[2016-06-13] MEDS: Hydrocodone/APAP 5mg/325mg Tab PO PRN (02:54)
[2016-06-13] MEDS: D5-0.45NS 1,000 ML IV SCH (02:57)
[2016-06-13 03:10] LABS: FERRITIN 219 ng/mL (15-150); IRON SATURATION 80 % (15-55); TIBC (LCI) 106 ug/dL (250-450); UIBC 21 ug/dL (118-369)
--- NOTE | 2016-06-13 04:32 | Progress Notes ---
DATE: 06/12/2016 PROBLEM LIST: 1. Insulin-dependent diabetes mellitus. 2. Chronic obstructive pulmonary disease, nonsmoker. 3. Chronic pain syndrome. SYMPTOMS: Nil, feeling okay. No specific new other symptoms. PHYSICAL EXAMINATION: VITAL SIGNS: Temperature is 97.5, blood pressure 101/62, saturation 100% on 2 L. NECK: Veins not visualized. Good bilateral carotid upstroke. CHEST: Shows diminished air entry with occasional rhonchi. HEART: Regular. ABDOMEN: Soft, nontender. LABORATORY STUDIES: White count is ____, hemoglobin 10 grams. Potassium is 2.3. ASSESSMENT: The patient clinically appears to be stable respiratory cobos, severe hypokalemia. PLANS AND SUGGESTIONS: We will go ahead and supplement potassium and continue other breathing treatment, inhalation treatment and see how she does and go from there. JOB# [id number]
[2016-06-13 05:11] LABS: FOLIC ACID 14.7 ng/mL (>3.0)
[2016-06-13] MEDS: Levothyroxine 0.05 Mg Tab PO SCH (06:34)
[2016-06-13] MEDS: INSULIN ASPART SLIDING SCALE 100 UNITS/ML UNIT SUBQ SCH ×2 (06:35→12:21)
[2016-06-13 07:57] LABS: ANION GAP 8.3 (7.0-16.0); BUN - UREA NITROGEN 6 mg/dL (7-25); CALCIUM SERUM 7.1 mg/dL (8.6-10.3); CARBON DIOXIDE 27.1 mEq/L (21.0-31.0); CHLORIDE 109 mEq/L (98-107); CREATININE - SERUM 0.5 mg/dL (0.6-1.2); GLUCOSE 85 mg/dL (70-105); SODIUM SERUM 142 mEq/L (136-145)
[2016-06-13 08:04] LABS: HEMATOCRIT 29.1 % (35.0-45.0); HEMOGLOBIN 9.8 gm/dL (11.7-16.1); MEAN CELL VOLUME 103.9 fl (81-100); MEAN CORPUSCULAR HGB CONC 33.7 pg (28.0-36.0); MEAN PLATELET VOLUME 8.5 fl; PLATELET COUNT 239 Th/cmm (150-400); RED CELL DISTRIBUTION WIDTH 18.9 % (11.5-20.0); WHITE BLOOD COUNT 7.5 Th/cmm (4.8-10.8)
[2016-06-13 08:15] LABS: T3 FREE 1.2 pg/mL (2.0-4.4); T4 FREE 0.96 ng/dL (0.82-1.77)
[2016-06-13 08:28] LABS: POTASSIUM SERUM 2.4 mEq/L (3.5-5.1)
[2016-06-13] MEDS: Potassium Chloride 10 mEq ER Tab PO SCH (09:25)
[2016-06-13] MEDS: Pantoprazole 40 mg EC Tab PO SCH (09:26)
[2016-06-13] MEDS: Multivitamin Tab PO SCH (09:27)
[2016-06-13] MEDS: Calcium Carb/Vit D 500 mg/200 U Tab PO SCH (09:27)
[2016-06-13 09:55] LABS: ANISOCYTOSIS 1+; BAND NEUTROPHILE 2 % (0-10); EOSINOPHIL 1 % (0-5); NEUTROPHILS 83 % (40-80); PLATELET ESTIMATE ADEQUATE (NORMAL); PLATELET MORPHOLOGY NORMAL (NORMAL); POIKILOCYTOSIS 1+; TARGET CELLS 1+; TOTAL CELLS COUNTED 100
[2016-06-13] MEDS ORDERED: Potassium Chloride 20 mEq ER Tab PO SCH ×2 (11:15→15:15)
[2016-06-13] MEDS ORDERED: Potassium Chloride 40 MEQ, Lidocaine 1% 20mL Vial 25 MG in Sodium Chloride 0.9% 250 ML IV ONE (11:30)
--- NOTE | 2016-06-13 12:43 | Infectious Disease Prog Note ---
Infectious Disease Subjective - Review of Systems Service Date: 06/13/16 Subjective: cc cellulitis hpi- pt ct a/p shows anasarca, abx adjusted schedule for discahrge [facility] d/w staff 10 day s more iv vanco neded ros nio fever o/e drowsy vss chest claer abd ascites ext pulse dx anasarca. leg cellulitis plan vanco iv po levaquin Infectious Disease Objective - Results Result Diagrams: 06/13/16 06:16 06/13/16 06:16 Recent Labs: Laboratory Last Values WBC 7.5 Th/cmm (4.8-10.8) 06/13/16 06:16 RBC 2.80 Mil/cmm (3.80-5.20) L 06/13/16 06:16 Hgb 9.8 gm/dL (11.7-16.1) L 06/13/16 06:16 Hct 29.1 % (35.0-45.0) L 06/13/16 06:16 MCV 103.9 fl (81-100) H 06/13/16 06:16 MCH 35.0 pg (27.0-31.0) H 06/13/16 06:16 MCHC Differential 33.7 pg (28.0-36.0) 06/13/16 06:16 RDW 18.9 % (11.5-20.0) 06/13/16 06:16 Plt Count 239 Th/cmm (150-400) 06/13/16 06:16 MPV 8.5 fl 06/13/16 06:16 Neutrophils % 80.1 % (40.0-80.0) H 06/12/16 07:05 Band Neutrophils % 2 % (0-10) 06/13/16 06:16 Lymphocytes % 10.4 % (20.0-50.0) L 06/12/16 07:05 Monocytes % 4.4 % (2.0-10.0) 06/12/16 07:05 Eosinophils % 0.5 % (0.0-5.0) 06/12/16 07:05 Basophils % 4.6 % (0.0-2.0) H 06/12/16 07:05 Neutrophils (Manual) 83 % (40-80) H 06/13/16 06:16 Lymphocytes 10 % (20-50) L 06/13/16 06:16 Monocytes 4 % (2-10) 06/13/16 06:16 Eosinophils 1 % (0-5) 06/13/16 06:16 Basophils 0 % (0-3) 06/09/16 18:49 Platelet Estimate ADEQUATE (NORMAL) 06/13/16 06:16 Platelet Morphology NORMAL (NORMAL) 06/13/16 06:16 Poikilocytosis 1+ 06/13/16 06:16 Anisocytosis 1+ 06/13/16 06:16 Target Cells 1+ 06/13/16 06:16 RBC Morph Micro Appear ABNORMAL (NORMAL) 06/13/16 06:16 ESR 18 mm/hr (0-30) 06/13/16 06:16 PT 12.0 SECONDS (9.5-11.5) H 06/09/16 18:49 INR 1.14 (0.5-1.4) 06/09/16 18:49 PTT (Actin FS) 25.2 SECONDS (26.0-38.0) L 06/09/16 18:49 Specimen Source Arterial 06/11/16 08:48 Sample Site Left Radial 06/11/16 08:48 pH 7.48 (7.35-7.45) H 06/11/16 08:48 pCO2 37.0 mmHg (35.0-45.0) 06/11/16 08:48 pO2 142.0 mmHg (80.0-100.0) H 06/11/16 08:48 HCO3 28.1 mEq/L (20.0-26.0) H 06/11/16 08:48 Base Excess 4.0 mEq/L (-3.0-3.0) H 06/11/16 08:48 O2 Saturation 99.0 % (92.0-100.0) 06/11/16 08:48 Nawaf Test Positive 06/11/16 08:48 Vent Rate NA 06/11/16 08:48 Inspired O2 28 06/11/16 08:48 Tidal Volume NA 06/11/16 08:48 PEEP NA 06/11/16 08:48 Pressure (ins/psv/peep) NA 06/11/16 08:48 Critical Value ACELIS 06/11/16 08:48 Sodium 142 mEq/L (136-145) 06/13/16 06:16 Potassium 2.4 mEq/L (3.5-5.1) L* 06/13/16 06:16 Chloride 109 mEq/L (98-107) H 06/13/16 06:16 Carbon Dioxide 27.1 mEq/L (21.0-31.0) 06/13/16 06:16 Anion Gap 8.3 (7.0-16.0) 06/13/16 06:16 BUN 6 mg/dL (7-25) L 06/13/16 06:16 Creatinine 0.5 mg/dL (0.6-1.2) L 06/13/16 06:16 Est GFR ( Amer) > 60.0 ml/min (>90) 06/13/16 06:16 Est GFR (Non-Af Amer) > 60.0 ml/min 06/13/16 06:16 BUN/Creatinine Ratio 12.0 06/13/16 06:16 Glucose 85 mg/dL (70-105) 06/13/16 06:16 POC Glucose 155 MG/DL (70 - 105) H 06/13/16 06:21 Whole Bld Lactic Acid 3.53 mmol/L (0.60-1.99) H* 06/09/16 21:18 Calcium 7.1 mg/dL (8.6-10.3) L 06/13/16 06:16 Magnesium 1.8 mg/dL (1.9-2.7) L 06/11/16 06:55 Iron 85 ug/dL (27-139) 06/10/16 11:58 TIBC 106 ug/dL (250-450) L 06/10/16 11:58 Iron Saturation 80 % (15-55) H 06/10/16 11:58 Unsaturated IBC 21 ug/dL (118-369) L 06/10/16 11:58 Ferritin 219 ng/mL (15-150) H 06/10/16 11:58 Total Bilirubin 0.5 mg/dL (0.3-1.0) 06/11/16 06:55 AST 62 U/L (13-39) H 06/11/16 06:55 ALT 35 U/L (7-52) 06/11/16 06:55 Alkaline Phosphatase 75 U/L (34-104) 06/11/16 06:55 Troponin I 0.04 ng/mL (0.01-0.05) 06/09/16 18:49 C-Reactive Protein 1.1 mg/dL (0.0-0.9) H 06/12/16 07:05 Total Protein 3.3 gm/dL (6.0-8.3) L 06/11/16 06:55 Albumin < 1.5 gm/dL (3.7-5.3) L 06/11/16 06:55 Globulin 1.8 gm/dL 06/11/16 06:55 Albumin/Globulin Ratio 0.8 (1.0-1.8) L 06/11/16 06:55 Triglycerides 103 mg/dL (<150) 06/09/16 18:49 Cholesterol 68 mg/dL (<200) 06/09/16 18:49 LDL Cholesterol Direct 26 mg/dL (75-193) L 06/09/16 18:49 HDL Cholesterol 29 mg/dL (23-92) 06/09/16 18:49 Vitamin B12 202 pg/mL (211-946) L 06/10/16 11:57 Folic Acid 14.7 ng/mL (>3.0) 06/10/16 11:57 Free T4 0.96 ng/dL (0.82-1.77) 06/11/16 06:55 Free T3 1.2 pg/mL (2.0-4.4) L 06/11/16 06:55 TSH 3.46 uIU/ml (0.34-5.60) 06/11/16 06:55 Urine Source CATH 06/09/16 23:45 Urine Color YELLOW 06/09/16 23:45 Urine Clarity CLEAR (CLEAR) 06/09/16 23:45 Urine pH 6.0 06/09/16 23:45 Ur Specific [place] 1.010 (1.005-1.030) 06/09/16 23:45 Urine Protein NEGATIVE mg/dL (NEGATIVE) 06/09/16 23:45 Urine Glucose (UA) NEGATIVE mg/dL (NEGATIVE) 06/09/16 23:45 Urine Ketones NEGATIVE mg/dL (NEGATIVE) 06/09/16 23:45 Urine Blood SMALL (NEGATIVE) H 06/09/16 23:45 Urine Nitrate NEGATIVE (NEGATIVE) 06/09/16 23:45 Urine Bilirubin NEGATIVE (NEGATIVE) 06/09/16 23:45 Urine Urobilinogen 0.2 E.U./dL (0.2 - 1.0) 06/09/16 23:45 Ur Leukocyte Esterase NEGATIVE (NEGATIVE) 06/09/16 23:45 Urine RBC 2-5 /hpf (0-5) 06/09/16 23:45 Urine WBC 0-2 /hpf (0-5) 06/09/16 23:45 Ur Epithelial Cells RARE /lpf (FEW) 06/09/16 23:45 Urine Bacteria FEW /hpf (NONE SEEN) 06/09/16 23:45 Hyaline Casts 0-2 /lpf (0-2) H 06/09/16 23:45 Stool Occult Blood NEGATIVE (NEGATIVE) 06/12/16 22:11 RPR NONREACTIVE (NONREACTIVE) 06/09/16 18:49 - Physical Exam Vitals and I&O: Vital Signs Temp 96.8 F 06/13/16 08:00 Pulse 83 06/13/16 08:00 Resp 18 06/13/16 08:00 BP 118/79 06/13/16 09:26 Pulse Ox 96 06/13/16 08:00 Intake & Output 06/12/16 06/13/16 06/13/16 18:59 06:59 18:59 Intake Total 2044.75 350 Output Total 1000 901 Balance 1044.75 -551 Intake: Intake, IV Amount 1594.75 D5-0.45NS 1,000 ml @ 100 1000 mls/hr IV .Q10H AMADO Rx#: [id number] KCL 20mEq/100mL Premix 20 200 meq In 100 ml @ 50 mls/ hr IV Q2H AMADO Rx#: [id number] Piperacillin Sodium/ 150 Tazobact 3.375 gm In Sodium Chloride 0.9% 50 ml @ 100 mls/hr IV Q6HR AMADO Rx#:[id number] Vancomycin HCl 0.75 gm In 244.75 Sodium Chloride 0.9% 250 ml @ 165 mls/hr IV Q24HR @1500 AMADO Rx#:[id number] Oral 450 350 Output: Urine 1000 901 Other: # Bowel Movements 0 2 Stool Characteristics Soft Active Medications: Current Medications Acetaminophen (Tylenol) 650 mg PO Q4HR PRN PRN Reason: Pain (Mild) Stop: 08/08/16 20:39 Acetaminophen/Hydrocodone Bitart ([place] 5mg/325mg) 1 tab PO Q6HR PRN PRN Reason: Pain (Severe) Stop: 08/08/16 20:39 Last Admin: 06/13/16 02:54 Dose: 1 tab Albuterol Sulfate (Albuterol 2.5mg/3ml Neb Ud) 2.5 mg HHN Q6H PRN PRN Reason: Respiratory Distress Stop: 08/08/16 23:08 Last Admin: 06/12/16 13:21 Dose: 2.5 mg Alendronate Sodium (Fosamax) 70 mg PO QWED AMADO Stop: 08/13/16 07:29 Ascorbic Acid (Vitamin C) 500 mg PO DAILY AMADO Stop: 08/09/16 08:59 Last Admin: 06/13/16 09:27 Dose: 500 mg Baclofen (Lioresal) 10 mg PO BID AMADO Stop: 08/09/16 08:59 Last Admin: 06/13/16 09:26 Dose: 10 mg Calcium/Vitamin D (Oscal W/Vitamin D) 1 tab PO BID AMADO Stop: 08/09/16 08:59 Last Admin: 06/13/16 09:27 Dose: 1 tab Diphenoxylate HCl/Atropine (Lomotil) 2 tab PO DAILY PRN PRN Reason: Diarrhea Stop: 08/08/16 20:39 Furosemide (Lasix) 20 mg PO QPM AMADO Stop: 08/09/16 16:59 Last Admin: 06/12/16 16:44 Dose: 20 mg Furosemide (Lasix) 40 mg PO DAILY AMADO Stop: 08/09/16 08:59 Last Admin: 06/13/16 09:26 Dose: 40 mg Dextrose/Sodium Chloride (D5-0.45ns) 1,000 mls @ 100 mls/hr IV .Q10H AMADO Stop: 08/08/16 20:36 Last Admin: 06/13/16 02:57 Dose: 100 mls/hr Vancomycin HCl 0.75 gm/ Sodium (Chloride) 250 mls @ 165 mls/hr IV Q24HR@1500 AMADO Stop: 08/10/16 14:59 Last Infusion: 06/12/16 17:35 Dose: 165 mls/hr Potassium Chloride 40 meq/Lidocaine HCl 25 mg/ Sodium Chloride 272.5 mls @ 68 mls/hr IV X1 ONE Stop: 06/13/16 15:30 Last Admin: 06/13/16 11:52 Dose: 68 mls/hr Insulin Aspart (Novolog Insulin Sliding Scale) 0 units SUBQ ACHS AMADO PRN Reason: Protocol Stop: 08/09/16 11:29 Last Admin: 06/13/16 12:21 Dose: Not Given Ipratropium [place] (Atrovent Neb 0.5mg/2.5ml) 0.5 mg HHN Q6HRT AMADO Stop: 08/09/16 00:59 Last Admin: 06/13/16 07:56 Dose: 0.5 mg Levofloxacin (Levaquin) 500 mg PO DAILY AMADO Stop: 08/12/16 08:59 Last Admin: 06/13/16 09:25 Dose: 500 mg Levothyroxine Sodium (Synthroid) 0.05 mg PO QDAC AMADO Stop: 08/09/16 07:29 Last Admin: 06/13/16 06:34 Dose: 0.05 mg Miscellaneous (Vancomycin Iv Per Pharmacy) 1 ea MC PRN AMADO Stop: 08/10/16 14:14 Morphine Sulfate (Ms-Contin) 30 mg PO BID [facility] Stop: 08/12/16 08:59 Last Admin: 06/13/16 09:26 Dose: 30 mg Multivitamins/Vitamin C (Theragran) 1 tab PO DAILY AMADO Stop: 08/09/16 08:59 Last Admin: 06/13/16 09:27 Dose: 1 tab Pantoprazole Sodium (Protonix) 40 mg PO DAILY AMADO Stop: 08/09/16 08:59 Last Admin: 06/13/16 09:26 Dose: 40 mg Potassium Chloride (Klor-Con) 20 meq PO DAILY [facility] Stop: 08/12/16 11:14 Last Admin: 06/13/16 12:16 Dose: 20 meq Temazepam (Restoril) 15 mg PO HS PRN; Protocol PRN Reason: Insomnia Stop: 08/08/16 20:39 Zinc Sulfate (Zinc Sulfate) 220 mg PO DAILY AMADO Stop: 08/09/16 08:59 Last Admin: 06/13/16 09:25 Dose: 220 mg Nutritional Asmnt/Malnutr-PDOC - Dietary Evaluation Malnutrition Findings (Please click <Entered> for more info): Nutritional Asmnt/Malnutrition Start: 06/10/16 11: 22 Text: Status: Complete Freq: Document 06/10/16 11:22 DANIELBon (Rec: 06/10/16 11:32 RAFAELA BRANDEN- [email or web address]) Nutritional Asmnt/Malnutrition Patient General Information Nutritional Screening Consult Diagnosis Weakness (reason for visit) Pertinent Medical Hx/Surgical Hx hypotension, chronic narcotic use, anemia, CVA, CHF, GERD Subjective Information Consult received for no appetite. Patient was admitted for weakness. Per admission data, poor oral intake > 1 week. Per patient, her appetite is now very good, no issues. She follows a mechanical soft diet at home without difficulty. She requested tea instead of coffee, ketchup with breakfast , soy milk only, soup with lunch and dinner, and only sugar substitutes. Will honor food preferences. States she understands diabetic diet. Swallow evaulation completed today; per speech therapist, continue mechanical soft ground diet with thin liquids, tolerating well. Current Diet Order/ Nutrition Support Mechanical soft ground Patient / S.O Can Pertinent Medications vitamin C, Oscal w/D, lasix, novolog, synthroid, theragran, protonix, Klor, zinc Pertinent Labs (06/10) K 3.4, glucose 225, 273 , Ca 7.1, albumin 2.1 Nutritional Hx/Data Height 1.65 m Height (Calculated Centimeters) 165.1 Current Weight (lbs) 58.967 kg Weight (Calculated Kilograms) 59.0 Weight (Calculated Grams) 61797.0 Deer Body Weight 125 % Deer Body Weight 104 Weight Status Approriate GI Symptoms GI Symptoms None Food Allergies No Cultural/Ethnic/Anabaptist Belief none indicated Skin Integrity/Comment: Ankle edema, bruise/reddened right upper arm Estimated Nutritional Goals BEE in Kcals: Using Current wt Calories/Kcals/Kg 130lb/59kg Kcals Calculated 4348-2181 kcal/day Protein: Using Current wt Protein g/k-1.2 gm/kg Protein Calculated 60-70 gm/day Fluid: ml 6230-6880 ml/day (1 ml/kcal) Nutritional Problem 1. Problem Problem Altered nutrition related lab values related to Etiology electrolyte imbalance and hyperglycemia aeb Signs/Symptoms: K 3.4, glucose 225, 273, Ca 7. 1, Intervention/Recommendation Recommendations by RD Dietary Education by RD1 Increase Calorie Intake Comments 1. Modify diet to 60 gm CCHO, mechanical soft ground diet as tolerated by patient. 2. [place] food preferences to increase oral intake; added to Cardex. 3. MD to modify insuiln regimen/replace K as needed. Expected Outcomes/Goals Expected Outcomes/Goals nutrition related labs normalize, weight remains stable, oral intake to meet > 75% of nutrient needs.
--- NOTE | 2016-06-14 04:25 | Consultation ---
DATE OF CONSULTATION: 06/13/2016 REASON FOR CONSULTATION: Hypokalemia. HISTORY OF PRESENT ILLNESS: The patient is a pleasant 70-year-old woman who was admitted to [facility] for complaint of bilateral leg cellulitis. On examination, the patient is pleasant. Denies complaints. She has been able to tolerate oral diet without difficulty. Reports having several soft bowel movements, but only two bowel movements a day for the last 2 days of hospitalization. REVIEW OF SYSTEMS: Denies nausea, vomiting, chest pain, shortness of breath, abdominal pain, diarrhea. Otherwise , 14-point negative except as above. PAST MEDICAL HISTORY: Includes hypertension, past history of cellulitis, osteoarthritis, and hypothyroidism as well as chronic pain syndrome. PAST MEDICAL HISTORY: As per above. PAST SURGICAL HISTORY: Total hip replacement. MEDICATIONS: As an inpatient reviewed at this time include Tylenol, albuterol, alendronate, baclofen, calcium, vitamin D, D5 half NS, Lasix 40 mg p.o. daily as well as 20 mg p.o. q.p.m., levothyroxine, and potassium chloride supplementation 20 mg p.o. daily. ALLERGIES: No known drug allergies. FAMILY HISTORY: Noncontributory. SOCIAL HISTORY: No smoking, alcohol or drug use at this time. PHYSICAL EXAMINATION: VITAL SIGNS: Temperature 36, blood pressure 126/62, pulse 82, and respirations 18. GENERAL APPEARANCE: Well-developed cachectic woman in no apparent distress, alert and oriented x 3. LUNGS: Clear to auscultation bilaterally. HEART: Regular rate and rhythm. No murmurs, rubs, or gallops. EXTREMITIES: No edema. 1+ pulses distally. LABORATORY DATA: As of 06/13/2016, white count 7.5, hemoglobin 9.8, and platelets 239,000. Chemistry: Sodium 142, K 2.4, chloride 109, CO2 of 27, BUN 6, creatinine 0.5, and calcium is 7.1. ASSESSMENT AND RECOMMENDATIONS: 1. Hypokalemia likely secondary to iatrogenic use of Lasix. Given that the patient apparently required some diuresis due to history of volume overload, we will recommend replacement with potassium supplementation as needed, Lasix if able to be weaned would be discontinued given that potassium losses in the urine are likely contributing to the patient's hypokalemia. Agree with supplementation if unable to discontinue Lasix. 2. Hypocalcemia. Again, urinary calcium losses may be enhanced by Lasix administration. Replace with calcium carbonate tabs as you are doing. Ionized calcium could be sent for further workup, but this is likely iatrogenic as in hyperkalemia. 3. Osteoarthrosis. The patient's pain is controlled and renal function is actually good, so continue alendronate as well as nonsteroidals as needed. 4. Pneumonia. The patient remains on broad-spectrum antibiotics at this time. Continue management as per Infectious Disease. Thank you, Dr. Pickard for allowing us to be involved in the care of this patient. No contraindication from renal standpoint for transfer to [place] while LTAC at this time. JOB# [id number] [facility]
--- NOTE | 2016-06-14 07:45 | Progress Notes ---
DATE: 06/13/2016 PULMONARY PROGRESS NOTE PROBLEM LIST: 1. COPD, nonsmoker. 2. Electrolytes imbalance, improving. 3. Significant stable, unchanged. SYMPTOMS: Nil. She is feeling a lot better. She denies of any shortness of breath, coughing, or wheezing, etc. PHYSICAL EXAMINATION: VITAL SIGNS: Temperature is 97.1, blood pressure 126/62, and saturation 100% on 2 liters. NECK: Veins could not be visualized. Good bilateral carotid upstroke. CHEST: Shows diminished air entry with occasional rhonchi. HEART: Regular. ABDOMEN: Soft and nontender. LABORATORY DATA: The patient's potassium is still 2.4 and electrolytes are otherwise okay. ASSESSMENT: The patient is clinically improving and has persistent low electrolytes, exact reason is not clear. We will increase potassium supplementation and continue rest of other treatment and go from there. JOB# [id number]
--- NOTE | 2016-06-14 08:57 | Progress Notes ---
DATE: 06/13/2016 SUBJECTIVE: The patient is awake and alert. The patient is on oxygen via nasal cannula. The patient is receiving inpatient nebulizer treatment. The patient is on IV fluids. The patient is on IV antibiotics. OBJECTIVE: VITAL SIGNS: Temperature 97.8, pulse of 83, blood pressure 118/79, respiratory rate 18, O2 sat is 96% on 2 liters nasal cannula. CARDIOVASCULAR: S1 and S2. RESPIRATORY: [place]. GASTROINTESTINAL: Soft. Positive bowel sounds. LABORATORY DATA: Hematology; WBC 7.5, hemoglobin is 9.8, hematocrit 28.1, platelet count 239, 82% neutrophil and 10% lymphocytes. Chemistry: Sodium 142, potassium 2.4, chloride 109, bicarb 27, anion gap 8.3, BUN 6, creatinine 0.5. GFR is more than 60, glucose 85, calcium per labs. MICROBIOLOGY: Blood cultures from June 09 shows no growth. MRSA screen from June 09 negative. Blood cultures from June 10 shows no growth.. ASSESSMENT: 1. Microcytic anemia. 2. Respiratory failure (acute). 3. Hypokalemia. 4. Hypercalcemia. 5. Protein-calorie malnutrition (severe). 6. Altered level of consciousness (resolved). 7. Sepsis. 8. Leukocytosis (resolved). 9. Insomnia 10. Dyspepsia. 11. Hypertension. 12. Hypothyroidism. 13. Chronic pain syndrome. 14. Status post left hip arthroplasty. 15. Microscopic hematuria. 16. Cellulitis of bilateral lower extremities. PLAN: Continue current medication and treatment. Obtain labs in a.m. We will correct electrolyte deficiency. We will obtain Nephrology consultation regarding the patient's continued hypokalemia. Further recommendations per consult. JOB# [id number] [facility]ISION[facility]
--- NOTE | 2016-06-21 23:11 | Discharge Summary ---
DATE OF DISCHARGE: 06/13/2016 DISCHARGE DIAGNOSES: 1. Microcytic anemia. 2. Respiratory failure (acute). 3. Hypokalemia. 4. Hypocalcemia. 5. Protein-calorie malnutrition (severe). 6. Altered level of consciousness (resolved). 7. Sepsis. 8. Leukocytosis (resolved). 9. Insomnia. 10. Dyspepsia. 11. Hypertension. 12. Hypothyroidism. 13. Chronic pain syndrome. 14. Status post left hip arthroplasty. 16. Microscopic hematuria. 17. Cellulitis of bilateral lower extremities. HOSPITAL COURSE: The patient is a 70-year-old white female who presented to the ER with altered level of consciousness. The patient was diagnosed with altered level of consciousness, sepsis, leukocytosis, anemia, hyperglycemia and hypocalcemia, anemia, protein-calorie malnutrition (severe). The patient was admitted to telemetry unit. CONSULTATION OBTAINED: Hematology consultation obtained from Dr. Villegas regarding the patient's anemia, who found the patient has microcytic anemia and the patient will have probably microscopic hematuria and his recommendation was transfuse at this time. Pulmonary consultation obtained from Dr. Ramona Ordonez regarding the patient's COPD and hypoxemia. Recommendation is continue nebulizer treatment. Infectious Disease consultation from Dr. Essence Ordonez. The patient was started on empiric coverage with Zosyn for the patient's leukocytosis. Silva culture was obtained. Results from silva culture showed blood culture from 06/09/2016 was negative, MRSA screen from 06/09/2016 negative. Blood culture from 06/10/2016 negative. Right leg wound culture from 06/11/2016 was negative. Also, nephrology consultation was obtained from Dr. Littlejohn regarding the patient's hypokalemia. Recommendation is hypokalemia secondary to Lasix. Recommendation was continue with potassium supplementation as needed. The patient's hypocalcemia secondary also to Lasix. The patient was discharged to SNF for further medical management and inpatient rehab therapy. The patient was discharged on 06/13/2016. JOB# [id number] [facility]
--- NOTE | 2016-07-06 10:55 | Progress Notes ---
DATE: 06/12/2016 SUBJECTIVE: The patient is awake and alert. The patient is on oxygen nasal cannula. The patient received inpatient nebulizer treatment. The patient is on IV antibiotics. The patient received inpatient rehab therapy. OBJECTIVE: VITAL SIGNS: Temperature 97, pulse 97, blood pressure 118/73, respiration 20, and O2 sat was 100% on 2 liters nasal cannula. CARDIOVASCULAR: S1 and S2. RESPIRATORY: rales. GASTROINTESTINAL: Soft. Positive bowel sounds. LABORATORY DATA: Hematology: WBC is 9.3, hemoglobin 10.0, hematocrit 28.8, and platelet count of 244, 80% neutrophils, 10% lymphocytes. Chemistry: Sodium 143, potassium 2.3, chloride 109, bicarbonate 27, anion gap 9.1, BUN 8, creatinine 0.7, GFR is more than 60. Glucose is 100, calcium 7.3 MICROBIOLOGY: Blood culture from 06/09/2016 shows no growth. MRSA screen from 06/09/2016 negative. Blood cultures from 06/10/2016 shows no growth. RADIOLOGIC TEST: Chest x-ray from 06/11/2016 shows no acute abnormalities. Abdominal and pelvic CT from 06/12/2016 shows anasarca. Generalized haziness throughout the abdomen and pelvis suggest mild diffuse edema, mild diffuse ascites. bowel margins appears to have mild generalized small bowel dilations. Questionable thickening of bowel wall, colon and small bowel and small bilateral pleural effusions. ASSESSMENT: 1. Microcytic anemia. 2. Severe protein-calorie malnutrition (severe). 3. Altered level of consciousness (resolved). 4. Sepsis. 5. Leukocytosis (resolved). 6. Insomnia. 7. Dyspepsia. 8. Hypertension. 9. Hypothyroidism. 10. Chronic pain syndrome. 11. Status post left hip arthroplasty. 12. Microscopic hematuria. 13. Debility. PLAN: Continue current medication and treatment. Obtain labs in a.m. Awaiting final culture results. Continue weaning oxygenation. Continue inpatient rehab therapy. We will correct electrolyte deficiency. 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 JOB# [id number] [facility]
== END 2016-06-13 15:30 | DRG 871 ==
LOC: ER 18:22 → MSI 21:01 → TELE 06-10 09:26
PROVIDERS: ADMIT Preventive Medicine Preventive Medicine/Occupational Environmental Medicine; ATTEND Preventive Medicine Preventive Medicine/Occupational Environmental Medicine
DX: A41.9 Sepsis, unspecified organism (principal); E43 Unspecified severe protein-calorie malnutrition; J96.01 Acute respiratory failure with hypoxia; J18.9 Pneumonia, unspecified organism; E87.5 Hyperkalemia; F11.20 Opioid dependence, uncomplicated; E83.41 Hypermagnesemia; L03.115 Cellulitis of right lower limb; D64.9 Anemia, unspecified; R31.29 Other microscopic hematuria; L03.116 Cellulitis of left lower limb; E83.52 Hypercalcemia; R73.9 Hyperglycemia, unspecified; E03.9 Hypothyroidism, unspecified; I10 Essential (primary) hypertension; M81.0 Age-related osteoporosis without current pathological fracture; G47.00 Insomnia, unspecified; G89.4 Chronic pain syndrome; R10.13 Epigastric pain; M19.90 Unspecified osteoarthritis, unspecified site; Z68.21 Body mass index [BMI] 21.0-21.9, adult
CPT/HCPCS: 36415-UA; 36600-90; 71010-TC; 80048-TC; 80053-TC; 80061-TC; 80202-TC; 81001-TC; 81003-TC; 82270-TC; 82607-90; 82728-90; 82746-90; 82803-TC; 82948-90; 83036-90; 83540-90; 83550-90; 83605; 83735-TC; 84439-90; 84443-TC; 84479-90; 84484-TC; 85007-TC; 85025-TC; 85027-TC; 85610-TC; 85652-TC; 85730-TC; 86141-TC; 86592-TC; 87070-90; 90779; 93005; 94760; 96374; 96375; 97530; J0696; J1815; J2001; J2543; J2930; J3370; J3480; J7030; J7613; X3401; X3904; Z7610